=== PATIENT | female | born 1970 | race Caucasian/White ===

== ENCOUNTER 2018-02-15 13:49 | Emergency (ER) | payer BC ==
[2018-02-15] MEDS ORDERED: Ketorolac 60 MG/2 ML SDV IM ONE (17:47)
--- NOTE | 2018-02-15 17:53 | EDM.PDOC ---
ED HPI GENERAL MEDICAL PROBLEM - General Chief Complaint: Abdominal Pain Stated Complaint: ABDOIMINAL PAIN 2 WKS POSTOP Time Seen by Provider: 02/15/18 17:35 Source of Information: Reports: Patient, RN History Limitations: Reports: Other (no old records) - History of Present Illness INITIAL COMMENTS - FREE TEXT/NARRATIVE: 47 yo female presents with diffuse abdominal pain since yesterday. Has a laminectomy about 2 weeks ago and had been on decreasing doses of Percocet since then. Was on Senna regularly until several days ago and then started skipping days because she felt with taking less oxycodone she would not need it. Now over the past 3 days has had minimal stooling. Tried Dulcolax supp and an enema with minimal results. Has no abdominal distention or vomiting. No fever. Pain persistent at times, but does wax and wane. Is here from the [facility]. 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: Reports: Other (see below) (enema and Dulcolax and Senna without relief/results.) Bilateral Abdominal Pain Score (Numeric/FACES): 5 - Related Data Allergies Allergy/AdvReac Type Severity Reaction Status Date / Time clindamycin Allergy Rash Verified 02/15/18 17:00 Home Meds: Home Meds Acetaminophen [Tylenol] 500 mg PO Q6H PRN 02/15/18 [History] Bisacodyl [Dulcolax] 10 mg RC ASDIRECTED PRN 02/15/18 [History] Ibuprofen 600 mg PO TID PRN 02/15/18 [History] Na Phos,M-B/Na Phos,DI-B [Fleet Enema] 1 bottle RECTAL ASDIRECTED PRN 02/15/18 [ History] Propranolol HCl [Propranolol] 60 mg PO BEDTIME 02/15/18 [History] SUMAtriptan [Imitrex Nasal] 20 mg .XX ASDIRECTED PRN 02/15/18 [History] Sennosides [Senokot] 8.6 mg PO DAILY 02/15/18 [History] Sertraline [Zoloft] 50 mg PO BEDTIME 02/15/18 [History] oxyCODONE 5 mg PO Q6H PRN 02/15/18 [History] Past Medical History HEENT History: Reports: Impaired Vision [employer] History: Reports: Fibroids, Neurological History: Reports: Migraines Psychiatric History: Reports: Anxiety, Depression Dermatologic History: Reports: Other (See Below) Other Dermatologic History: rash - Past Surgical History Female Surgical History: Reports: Section, Hysterectomy Neurological Surgical History: Reports: Discectomy, Laminectomy Social & Family History - Tobacco Use Smoking Status *Q: Never Smoker - Caffeine Use Caffeine Use: Reports: Coffee - Alcohol Use Days Per Week of Alcohol Use: 2 Number of Drinks Per Day: 2 Total Drinks Per Week: 4 - Recreational Drug Use Recreational Drug Use: No ED ROS GENERAL - Review of Systems Review Of Systems: See Below Constitutional: Reports: No Symptoms HEENT: Reports: No Symptoms Respiratory: Reports: No Symptoms Cardiovascular: Reports: No Symptoms GI/Abdominal: Reports: Abdominal Pain, Constipation. Denies: Black Stool, Bloody Stool, Diarrhea, Decreased Appetite, Hematemesis, Hematochezia, Melena, Nausea, Stool Incontinence, Vomiting : Reports: No Symptoms Musculoskeletal: Reports: No Symptoms Skin: Reports: No Symptoms Neurological: Reports: No Symptoms Psychiatric: Reports: No Symptoms ED EXAM, GI/ABD - Physical Exam Exam: See Below Exam Limited By: No Limitations General Appearance: Alert, WD/WN, No Apparent Distress Eyes: Bilateral: Normal Appearance Ears: Normal External Exam, Normal Canal, Hearing Grossly Normal Nose: Normal Inspection, Normal Mucosa, No Blood Throat/Mouth: Normal Inspection, Normal Lips, Normal Oropharynx, Normal Voice, No Airway Compromise Head: Atraumatic, Normocephalic Neck: Normal Inspection, Supple Respiratory/Chest: No Respiratory Distress, Lungs Clear, Normal Breath Sounds, No Accessory Muscle Use Cardiovascular: Regular Rate, Rhythm, No Edema GI/Abdominal Exam: Normal Bowel Sounds, Soft, Non-Tender, No Distention, No Mass Back Exam: Normal Inspection. No: CVA Tenderness (R), CVA Tenderness (L) Extremities: Normal Inspection, Normal Range of Motion, Non-Tender, No Pedal Edema Neurological: Alert, Oriented, CN II-XII Intact, Normal Cognition, No Motor/ Sensory Deficits Psychiatric: Normal Affect, Normal Mood Skin Exam: Warm, Dry, Intact, Normal Color, No Rash Lymphatic: No Adenopathy Course - Vital Signs Last Recorded V/S: Last Vital Signs Temp 37.1 C 02/15/18 17:20 Pulse 63 02/15/18 17:20 Resp 14 02/15/18 17:20 BP 118/81 02/15/18 17:20 Pulse Ox 95 02/15/18 17:20 - Orders/Labs/Meds Orders: Active Orders 24 hr Category Date Time Status Enema [RC] ASDIRECTED Care 02/15/18 18:08 Active Abdomen 1V Flat [CR] Stat Exams 02/15/18 17:42 Taken Meds: Medications Discontinued Medications Generic Name Dose Route Start Last Admin Trade Name Al PRN Reason Stop Dose Admin Ketorolac Tromethamine 60 mg 02/15/18 17:47 Toradol IM 02/15/18 17:48 ONETIME ONE Polyethylene Glycol 34 gm 02/15/18 18:06 Miralax PO 02/15/18 18:07 ONETIME ONE - Radiology Interpretation Free Text/Narrative:: Single view abdomen [id number] stool Departure - Departure Time of Disposition: 19:00 Disposition: Home, Self-Care 01 Condition: Good Clinical Impression: Constipation due to opioid therapy - Discharge Information Referrals: PCP,None [Primary Care Provider] - Forms: ED Department Discharge - My Orders Last 24 Hours: My Active Orders 02/15/18 17:42 Abdomen 1V Flat [CR] Stat 02/15/18 18:08 Enema [RC] ASDIRECTED - Assessment/Plan Last 24 Hours: My Active Orders 02/15/18 17:42 Abdomen 1V Flat [CR] Stat 02/15/18 18:08 Enema [RC] ASDIRECTED
[2018-02-15] MEDS ORDERED: Polyethylene Glycol 3350 Powder 17 GM Packet PO ONE (18:06)
--- NOTE | 2018-02-16 08:28 | CR ---
Abdomen 1V Flat CLINICAL HISTORY: Abdominal pain FINDINGS: The bowel gas pattern is nonobstructive. No abnormal masses are noted. There is moderate re tained stool throughout the colon. IMPRESSION: Moderate fecal retention Nonacute intestinal gas pattern
== END 2018-02-15 19:55 | disposition home or self-care (01) ==
LOC: JP.ED 13:49
DX: K59.03 Drug induced constipation (principal); T40.2X5A Adverse effect of other opioids, initial encounter; F41.9 Anxiety disorder, unspecified; F32.9 Major depressive disorder, single episode, unspecified; Z88.1 Allergy status to other antibiotic agents; Z79.899 Other long term (current) drug therapy
CPT/HCPCS: 74018; 96372; 99284; A9270; J1885